=== PATIENT | male | born 1975 | race Caucasian/White ===

== ENCOUNTER 2017-04-29 19:35 | Emergency (ER) | payer OTHER ==
[2017-04-29] MEDS ORDERED: DIPH,PERTUS(ACELL)TETVAC-LF 0.5 ML VIAL IM ONE (20:52)
--- NOTE | 2017-04-29 21:02 | XR ---
EXAMINATION TYPE: XR finger LT DATE OF EXAM: 04/29/2017 COMPARISON: NONE HISTORY: Fourth digit laceration after crush injury. TECHNIQUE: 3 views of the fourth digit were obtained. FINDINGS: There is no evidence of acute fracture or malalignment of the fourth digit. Osseous mineral ization is within normal limits. Mild soft tissue swelling is seen of the mid and proximal phalanx. N o radiopaque foreign body. IMPRESSION: Mild soft tissue swelling of the fourth digit without evidence of acute fracture or malal ignment.
--- NOTE | 2017-04-29 21:13 | ED ---
General Adult HPI - General Chief complaint: Wound/Laceration Stated complaint: finger lac Time Seen by Provider: 04/29/17 20:43 Source: patient, family, RN notes reviewed Mode of arrival: wheelchair Limitations: no limitations - History of Present Illness Initial comments: 41 yo male presents to the ER with cc of left ring finger abrasion. Patient states that he got his finger caught in farm equipment tonight and shaved off the top layer of skin. Patient states that there is no other injury. Does not recall his last tetanus. He is low but of pain to that finger worse to movement. He denies any nail involvement. He states this happened on accident. Patient denies any recent fever, chills, shortness of breath, chest pain, back pain, abdominal pain, nausea vomiting, numbness or tingling, dysuria or hematuria, constipation or diarrhea, headaches or visual changes, or any other current symptoms. - Related Data Home Medications Medication Instructions Recorded Confirmed No Known Home Medications [No 04/29/17 04/29/17 Known Home Medications] Allergies Allergy/AdvReac Type Severity Reaction Status Date / Time No Known Allergies Allergy Verified 04/29/17 20:20 Review of Systems ROS Statement: Those systems with pertinent positive or pertinent negative responses have been documented in the HPI. ROS Other: All systems not noted in ROS Statement are negative. Past Medical History Past Medical History: No Reported History, Sleep Apnea/CPAP/BIPAP History of Any Multi-Drug Resistant Organisms: None Reported Past Surgical History: Adenoidectomy, Tonsillectomy Past Psychological History: No Psychological Hx Reported Smoking Status: Never smoker Past Alcohol Use History: Occasional Past Drug Use History: None Reported General Exam - General Exam Comments Initial Comments: General: The patient is awake and alert, in no distress, and does not appear acutely ill. Neck: The neck is supple, there is no tenderness . Cardiovascular: There is a regular rate and rhythm. No murmur, rub or gallop is appreciated. Respiratory: Lungs are clear to auscultation, respirations are non-labored, breath sounds are equal. No wheezes, stridor, rales, or rhonchi. Musculoskeletal: sensation intact with 2+ pulses throughout the left upper extremity. full range of motion throughout with 5/5 muscle strength testing. avulsion of skin along the palmar aspect of left ring finger. no deep tissue injury noted. Neurological: CN II-XII intact, There are no obvious motor or sensory deficits. Coordination appears grossly intact. Speech is normal. Skin: Skin is warm and dry and no rashes or lesions are noted. Psychiatric: Normal mood and affect. Limitations: no limitations Course Vital Signs 04/29/17 20:16 Temperature 98.6 F Pulse Rate 86 Respiratory 20 Rate Blood Pressure 125/70 O2 Sat by Pulse 98 Oximetry Medical Decision Making - Medical Decision Making 41-year-old male presents for a left ring finger skin avulsion. This time x- rays reviewed and negative. This tenderness. We discussed long term. Discussed follow-up we discussed return for hours all questions. Patient stated that he understood he is given this plan. All questions have been answered. He'll be discharged. - Radiology Data Radiology results: report reviewed, image reviewed Disposition Clinical Impression: Avulsion of skin of finger without complication Narrative: left ring Disposition: HOME SELF-CARE Condition: Stable Instructions: Acute Wound Care (ED) Additional Instructions: Please use medication as discussed. Please follow up with family doctor if symptoms have not improved over the next two days. Please return to the emergency room if your symptoms increase or worsen or for any other concerns. Referrals: Emily Forte MD [REFERRING] - 1-2 days Time of Disposition: 21:36
[2017-04-29 21:48] VITALS: BP 130/60; PULSE 75; RESP 16; TEMP 98.3
== END 2017-04-29 21:45 | disposition home or self-care (01) ==
LOC: EC 19:35
DX: S61.205A Unspecified open wound of left ring finger without damage to nail, initial encounter (principal); G47.30 Sleep apnea, unspecified; Z99.89 Dependence on other enabling machines and devices; Z23 Encounter for immunization; W29.8XXA Contact with other powered hand tools and household machinery, initial encounter
CPT/HCPCS: 90471; 90715; 99283

== ENCOUNTER → 2018-04-08 | Outpatient (CLI) | payer OTHER ==
--- NOTE | 2018-04-09 10:45 | ECHOF ---
Referral Reason:R55 syncope MEASUREMENTS -------- HEIGHT: 162.6 cm WEIGHT: 104.3 kg BP: RVIDd: 3.1 cm (< 3.3) IVSd: 1.0 cm (0.6 - 1.1) LVIDd: 3.9 cm (3.9 - 5.3) LVPWd: 1.1 cm (0.6 - 1.1) IVSs: 1.4 cm LVIDs: 2.6 cm LVPWs: 1.3 cm Ao Diam: 3.3 cm (2.0 - 3.7) AV Cusp: 1.9 cm (1.5 - 2.6) LA Diam: 3.3 cm (2.7 - 3.8) MV EXCURSION: 17.245 mm (> 18.000) MV EF SLOPE: 96 mm/s (70 - 150) EPSS: 0.1 cm MV E Alexx: 0.96 m/s MV DecT: 176 ms MV A Alexx: 0.55 m/s MV E/A Ratio: 1.75 RAP: 5.00 mmHg RVSP: 21.96 mmHg FINDINGS -------- Sinus rhythm. This was a technically good study. LV size, wall thickness and systolic function are normal, with an EF greater than 55%. The left gurmeet tricular size is normal. The right ventricle is normal in size. The left atrial size is normal. The right atrial size is normal. The aortic valve is trileaflet, and appears structurally normal. No aortic stenosis or regurgitation. Mild mitral annular calcification present. Mild mitral regurgitation is present. Mild tricuspid regurgitation present. There is no evidence of pulmonary hypertension. The right v entricular systolic pressure, as measured by Doppler, is 21.96mmHg. There is no pulmonic regurgitation present. The aortic root size is normal. There is no pericardial effusion. CONCLUSIONS -------- 1. LV size, wall thickness and systolic function are normal, with an EF greater than 55%. 2. The right ventricle is normal in size. 3. The left atrial size is normal. 4. The right atrial size is normal. 5. The aortic valve is trileaflet, and appears structurally normal. No aortic stenosis or regurgitati on. 6. Mild mitral annular calcification present. 7. Mild mitral regurgitation is present. 8. Mild tricuspid regurgitation present. 9. There is no evidence of pulmonary hypertension. 10. The right ventricular systolic pressure, as measured by Doppler, is 21.96mmHg. 11. There is no pulmonic regurgitation present. 12. The aortic root size is normal. 13. There is no pericardial effusion. [employer]: Ludmila Alanis RDCS
== END | disposition home or self-care (01) ==
LOC: RADECHMAIN 15:29
PROVIDERS: ATTEND Family Medicine
DX: I08.1 Rheumatic disorders of both mitral and tricuspid valves (principal)
CPT/HCPCS: 93306

== ENCOUNTER → 2018-04-17 | Outpatient (CLI) | payer OTHER ==
--- NOTE | 2018-05-20 06:20 | EM ---
EVENT MONITOR A 30-DAY EVENT MONITOR. DATE OF THE STUDY: April 17, 2018. FINDINGS: The patient was monitored for 30 days. The baseline rhythm appeared to be a sinus mechanism. The patient did have multiple episodes of sinus tachycardia with a max heart rate of 150 beats per minute. Beside that, the patient did not have any evidence of sinus bradycardia. No evidence of any sinus pause or sinus arrest. No evidence of any advanced AV block seen. He did have an episode of ventricular triplet, but the heart rate was 79 beats per minute. CONCLUSION: 1. This is a 4-week event monitor. 2. Sinus rhythm as a baseline mechanism. 3. Multiple episodes of sinus tachycardia with max heart rate of 150 beats per minute. 4. No evidence of any sinus pause or sinus arrest. 5. No evidence of any advanced AV block. 6. No evidence of any significant arrhythmia noted. MMODL / IJN: [id number] /
== END | disposition home or self-care (01) ==
LOC: RADECHMAIN 12:05
PROVIDERS: ATTEND Family Medicine
DX: R55 Syncope and collapse (principal)
CPT/HCPCS: 93270; 93271

== ENCOUNTER 2019-04-08 13:28 | Observation (INO) | payer OTHER ==
[2019-04-08] MEDS ORDERED: DIAZEPAM 5 MG/ML 2 ML INJ IVP STA (14:05)
--- NOTE | 2019-04-08 14:18 | ED ---
Back Pain HPI - General Chief Complaint: Back Pain/Injury Stated Complaint: BACK PAIN Time Seen by Provider: 04/08/19 14:01 Source: patient - History of Present Illness Initial Comments: Patient is a 43-year-old male presenting to the emergency department via EMS with complaints of severe low back pain and spasm that happened just prior to arrival. Patient states he was walking [place] his [place] when the pain and spasms made him drop to his knees. Patient states he was not doing anything at the time. Patient's states this morning she noticed that he had a little bit more difficulty getting dressed this morning. Patient does have a history of chronic low back pain but has never been this severe. Patient received 100 mcg of fentanyl and 4 MG is of Zofran in the EMS prior to arrival. Patient states this only helped minimally with his pain. Patient denies any other trauma or falls recently. He denies any lumbar surgeries. He does not remember the last time he had imaging. Patient denies pain in his neck, abdominal, fever, chills, nausea numbness and tingling into his lower extremities. He denies bowel and bladder incontinence. He has no other complaints at this time. Upon arrival to the ER, his vital signs are stable. - Related Data Home Medications Medication Instructions Recorded Confirmed Omeprazole Magnesium [PriLOSEC OTC] 20 mg PO DAILY PRN 04/08/19 04/08/19 Allergies Allergy/AdvReac Type Severity Reaction Status Date / Time No Known Allergies Allergy Verified 04/08/19 18:29 Review of Systems ROS Statement: Those systems with pertinent positive or pertinent negative responses have been documented in the HPI. ROS Other: All systems not noted in ROS Statement are negative. Past Medical History Past Medical History: No Reported History, Sleep Apnea/CPAP/BIPAP Additional Past Medical History / Comment(s): chronic back pain History of Any Multi-Drug Resistant Organisms: None Reported Past Surgical History: Adenoidectomy, Tonsillectomy Past Psychological History: No Psychological Hx Reported Smoking Status: Never smoker Past Alcohol Use History: Occasional Past Drug Use History: None Reported General Exam - General Exam Comments Initial Comments: GENERAL: Patient is teary-eyed at, in mild distress secondary to acute low back pain. HEAD: Atraumatic, normocephalic. EYES: Pupils equal round and reactive to light, extraocular movements intact, sclera anicteric, conjunctiva are normal. ENT: TMs normal, nares patent, oropharynx clear without exudates. Moist mucous membranes. NECK: Normal range of motion, supple without lymphadenopathy or JVD. LUNGS: Breath sounds clear to auscultation bilaterally and equal. No wheezes rales or rhonchi. HEART: Regular rate and rhythm without murmurs, rubs or gallops. ABDOMEN: Soft, nontender, normoactive bowel sounds. No guarding, no rebound. No masses appreciated. : Deferred Rectal: Rectal tone normal EXTREMITIES: Patient has normal range of motion of the lower extremities although this increases his back pain. Patient's strength is 5 out of 5. Patient's sensation is equal and bilateral. He is neurovascular intact. There is no lower leg edema. NEUROLOGICAL: Cranial nerves II through XII grossly intact. Normal speech. PSYCH: Normal mood, normal affect. SKIN: Warm, Dry, normal turgor, no rashes or lesions noted. Course Vital Signs 04/08/19 13:30 Temperature 97.9 F Pulse Rate 68 Respiratory 20 Rate Blood Pressure 119/71 O2 Sat by Pulse 99 Oximetry Medical Decision Making - Medical Decision Making Patient is a 43-year-old male presenting via EMS for acute onset of low back pain. Patient does have chronic history of back pain but has never been this severe. Patient has been unable to walk in the ER. Patient received fentanyl EMS as well as Valium and Dilaudid the ER. His vital signs are stable. His exam has no red flag symptoms. His rectal tone is normal. Lumbar x-ray revealed a large calcification extending from the L5 superior endplate in the recommended CT for further evaluation. No other abnormalities were seen. CT of the lumbar spine showed a small posterior disc herniation at L4- 5 and L5-S1. There is no significant spinal stenosis. No fracture. Patient is not willing to stand secondary to pain. He was able to roll on his side for rectal exam. I discussed these findings with the patient. Patient will be admitted to observation for intractable low back pain. We will consult neurology. Patient was accepted by Dr. Fuller. Case was discussed with Dr. Merida. Disposition Clinical Impression: Intractable low back pain Disposition: ADMITTED IP TO THIS [facility] Condition: Stable Is patient prescribed a controlled substance at d/c from ED?: No Decision Date: 04/08/19 Decision Time: 18:08
--- NOTE | 2019-04-08 15:54 | XR ---
EXAMINATION TYPE: XR lumbar spine 2 or 3V DATE OF EXAM: 04/08/2019 COMPARISON: None HISTORY: Sudden pain low back TECHNIQUE: Three-view lumbar spine FINDINGS: There 5 lumbar-type vertebral bodies. The pedicles are intact. Disc heights are preserved. Vertebral body heights are preserved. There appears to be attempted lumbarization of S1. There is a large calcification from the anterior L5 vertebral level. Additional workup with CT is rec ommended. IMPRESSION: 1. Large calcification extending from the L5 anterior superior endplate. CT is recommended for addit ional evaluation. 2. An acute osseous abnormality within the lumbar spine is not identified.
[2019-04-08] MEDS ORDERED: HYDROmorphone 1 MG/ML 1 ML SYRINGE IVP STA (16:10)
--- NOTE | 2019-04-08 17:00 | CT ---
EXAMINATION TYPE: CT lumbar spine wo con DATE OF EXAM: 04/08/2019 COMPARISON: None HISTORY: Low back pain and weakness without injury CT DLP: 1527.6 mGycm Automated exposure control for dose reduction was used. Lumbar vertebra have normal alignment. Disc spaces are fairly normal except for some narrowing at L5- S1. There is S1-S2 rudimentary disc. Sacroiliac joints appear intact. There is no lumbar paraspinal m ass. There is no compression fracture. There is mild posterior disc herniation at L4-5 and L5-S1. The re is no significant spinal stenosis. IMPRESSION: Small posterior disc herniations as above. Degenerative disc space narrowing at L5-S1. No fracture. N o significant spinal stenosis. Nonobstructing bilateral renal calculi.
[2019-04-08] MEDS ORDERED: NALOXONE 0.4 MG/ML 1 ML VIAL IV PRN (18:02)
[2019-04-08] MEDS ORDERED: ACETAMINOPHEN TAB 325 MG TAB PO PRN (18:02)
[2019-04-08] MEDS ORDERED: MORPHINE SULFATE 4 MG/ML SYRINGE IV PRN (18:02)
[2019-04-08] MEDS ORDERED: KETOROLAC 30 MG/ML 1 ML VIAL IVP PRN (18:02)
[2019-04-08] MEDS ORDERED: DIAZEPAM 5 MG/ML 2 ML INJ IVP PRN (18:06)
[2019-04-09 01:59] VITALS: TEMP 97.9
[2019-04-09 08:02] VITALS: BP 108/71; PULSE 62; RESP 16
[2019-04-09] MEDS ORDERED: CYCLOBENZAPRINE 5 MG TAB PO PRN (10:30)
[2019-04-09] MEDS ORDERED: methylPREDNISolone SOD SUCCI 125 MG/2 ML VIAL IV STA (10:43)
--- NOTE | 2019-04-09 10:57 | P.CNOR ---
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 He did not have any specific injury was not lifting and does not have an earlier injury. He says that he was just walking and had sudden increased pain in his lower back that brought him to his knees and to the ground. He was unable to get up and move around. This happened about yesterday around 1:00 and presented to the emergency room and was admitted. He was unable to get up in the emergency room he is unable to stand and move around. He says that he is not really having problems in his lower extremity. Denies any weakness in his lower extremity. Denies any changes in bowel bladder function. He says his back hurt somewhat when he laughs and coughs. He is not having any chest pain or shortness of breath. He is not having any visual changes. Is not having any problems in his neck or upper extremities. 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 He says he does not usually take any medications for his back. He had a history of some issues at his left upper extremity several years ago with some tingling which resolved. He is not having any active treatment and his back otherwise. Review of Systems As stated per HPI. Denies any changes about her function. Denies any chest pain shortness breath. Denies any fevers chills. Denies any prior problems at his pelvis. Past Medical History Past Medical History: Sleep Apnea/CPAP/BIPAP Additional Past Medical History / Comment(s): chronic back pain History of Any Multi-Drug Resistant Organisms: None Reported Past Surgical History: Adenoidectomy, Tonsillectomy Past Anesthesia/Blood Transfusion Reactions: No Reported Reaction Past Psychological History: No Psychological Hx Reported Smoking Status: Never smoker Past Alcohol Use History: Occasional Past Drug Use History: None Reported Medications and Allergies Home Medications Medication Instructions Recorded Confirmed Type Omeprazole Magnesium [PriLOSEC OTC] 20 mg PO DAILY PRN 04/08/19 04/08/19 History Cyclobenzaprine [Flexeril] 10 mg PO TID #21 tab 04/09/19 Rx Famotidine [Pepcid] 20 mg PO DAILY #12 tablet 04/09/19 Rx predniSONE 20 mg PO DIRECTED #24 tab 04/09/19 Rx Allergies Allergy/AdvReac Type Severity Reaction Status Date / Time No Known Allergies Allergy Verified 04/08/19 18:29 Physical Examination Osteopathic Statement: *. No significant issues noted on an osteopathic structural exam other than those noted in the History and Physical/Consult. - L Spine: dermatomal strength & reflexes bilateral Strength: hip flexion: 5/5 (At his back there is no open wounds lacerations or abrasions. There are no rashes. He was able to sit up though slowly in bed he is able to stand up at the side of the bed. He is able stand on his toes and on his heels with 5 out of 5 strength at dorsiflexion plantarflexion and EHL. He is able lift his legs up off the bed individually with 5 out of 5 strength. There is no pain with internal extra rotation is hips. There is no pain over his iliac crest. There is no pain over her sacrum. He is nontender over the midline of his lumbar spine. He has some paravertebral spasm. Sensory is intact. There is no saddle paresthesias. His upper extremities have full active and passive range motion. There is no neural tension signs. No pain in his neck or head.) Results - Diagnostic results Lumbar AP/lateral x-ray: report reviewed, image reviewed CT Scan - lumbar: report reviewed, image reviewed (I reviewed the plain x-rays and the computed tomography scan of his lumbar spine. There is calcification over the left iliac crest anteriorly near the ASIS. It is seen on the lateral view of the x-ray but is not seen otherwise. There is some disc degeneration through his lumbar spine. He has residual S1 to disc space. There is no evidence of any instability. No evidence of any fracture. There is some small bony changes at the inferior aspect of L5 anteriorly but there is no significant erosion or bony reaction around it. There is some facet arthrosis from L2 to L5. There is some diffuse disc bulging L2-3 L3 4 L4 5 with some bilateral foraminal encroachment particularly at L3 4 and L4 5.) Assessment and Plan Assessment: Acute lower back pain with inability to ambulate, atraumatic and slightly improving Degenerative disc disease L2-3 L3 4 L4 5 with facet arthrosis No specific radiculopathy or lower extremity weakness No neurologic deficit Myofascial strain with spasms lumbar spine Possible annular fissures lumbar spine Plan: Acute lower back pain with inability to ambulate, atraumatic and slightly improving Degenerative disc disease L2-3 L3 4 L4 5 with facet arthrosis No specific radiculopathy or lower extremity weakness No neurologic deficit Myofascial strain with spasms lumbar spine Possible annular fissures lumbar spine The patient had an acute lumbar issue in his lower back which may be a result of an annular fissure or acute myofascial strain. It was quite incapacitating for him yesterday but it has significant likelihood of resolving with conservative measures. His computed tomography scan does not show any acute fracture or dislocation or process. I think is okay for him to mobilize slowly and to continue management on an outpatient basis after he receives some further medication today here in Hospital. I like to see if he has some improvement with a course of steroid. We'll give him an IV dose prior to his discharge. He has been taking some muscle relaxers thus far. He can continue an oral tapering dose of steroid which we have written for over the next 12 days. He should take some GI prophylaxis and may take muscle relaxer as needed for this as well. It is okay for him to mobilize and ambulate to his tolerance. He should avoid any heavy or rigorous activity. He should avoid any repetitive bending twisting or lifting. I would like to see him back in our office in approximately 1 week time for recheck evaluation. He may need further imaging and even possibly of an MRI. He is not having specific radiculopathy but there is a small bony change at the inferior aspect of L5 which we may need a basket further if his symptoms are not responding. He is requesting an MRI here in Hospital. I think that we can hold off on the MRI acutely and continue close follow-up and workup on an outpatient basis as his symptoms are quite new and he is not having specific neurologic deficit. Certai nly if he is not having improvement with conservative care further imaging would be indicated. I explained this to him and his family at length in the room and he seemed to understand. Time with Patient: Greater than 30
--- NOTE | 2019-04-09 13:08 | P.HPIM ---
History of Present Illness 43-year-old the male came back came in with complaints of lower back pain while walking patient doesn't have any tingling numbness or weakness in both legs. Patient denied any specific injuries CT scan of the back was donewhich showed diffuse bulging at L2-L3 L4-L5 with foraminal encroachment without any significant foraminal stenosis. Patient was just walking when he started having pain. Patient was a valid by orthopedic surgeon who recommended aanti- inflammatory medications and medications for back spasm patient pain is better now and the patient is cleared for discharge and will be discharged on above mentioned medications and t patient does have chronic low back pain patient denied any bladder problems or bowel problems Review of Systems REVIEW OF SYSTEMS: CONSTITUTIONAL: No fever, no malaise, no fatigue. HEENT: No recent visual problems or hearing problems. Denied any sore throat. CARDIOVASCULAR: No chest pain, orthopnea, PND, no palpitations, no syncope. PULMONARY: No shortness of breath, no cough, no hemoptysis. GASTROINTESTINAL: No diarrhea, no nausea, no vomiting, no abdominal pain. NEUROLOGICAL: No headaches, no weakness, no numbness. HEMATOLOGICAL: Denies any bleeding or petechiae. GENITOURINARY: Denies any burning micturition, frequency, or urgency. MUSCULOSKELETAL/RHEUMATOLOGICAL: as mentioned in HPI ENDOCRINE: Denies any polyuria or polydipsia. The rest of the 14-point review of systems is negative. Past Medical History Past Medical History: Sleep Apnea/CPAP/BIPAP Additional Past Medical History / Comment(s): chronic back pain History of Any Multi-Drug Resistant Organisms: None Reported Past Surgical History: Adenoidectomy, Tonsillectomy Past Anesthesia/Blood Transfusion Reactions: No Reported Reaction Past Psychological History: No Psychological Hx Reported Smoking Status: Never smoker Past Alcohol Use History: Occasional Past Drug Use History: None Reported Medications and Allergies Home Medications Medication Instructions Recorded Confirmed Type Omeprazole Magnesium [PriLOSEC OTC] 20 mg PO DAILY PRN 04/08/19 04/08/19 History Cyclobenzaprine [Flexeril] 10 mg PO TID #21 tab 04/09/19 Rx Famotidine [Pepcid] 20 mg PO DAILY #12 tablet 04/09/19 Rx predniSONE 20 mg PO DIRECTED #24 tab 04/09/19 Rx Allergies Allergy/AdvReac Type Severity Reaction Status Date / Time No Known Allergies Allergy Verified 04/08/19 18:29 Physical Exam Vitals: Vital Signs Temp Pulse Pulse Resp BP BP Pulse Ox 04/09/19 07:30 16 04/09/19 07:00 97.9 F 62 16 108/71 98 04/09/19 01:58 97.9 F 69 17 104/71 100 04/08/19 19:12 98.2 F 62 19 136/86 97 04/08/19 13:30 97.9 F 68 20 119/71 99 Intake and Output 04/08/19 04/09/19 04/09/19 22:59 06:59 14:59 Intake Total 296 Output Total 300 200 Balance -300 -200 296 Intake: Oral 296 Output: Urine 300 200 Other: Voiding Method Urinal Urinal # Voids 1 1 Weight 111.13 kg PHYSICAL EXAMINATION: GENERAL: The patient is alert and oriented x3, not in any acute distress. Well developed, well nourished. HEENT: Pupils are round and equally reacting to light. EOMI. No scleral icterus. No conjunctival pallor. Normocephalic, atraumatic. No pharyngeal erythema. No thyromegaly. CARDIOVASCULAR: S1 and S2 present. No murmurs, rubs, or gallops. PULMONARY: Chest is clear to auscultation, no wheezing or crackles. ABDOMEN: Soft, nontender, nondistended, normoactive bowel sounds. No palpable organomegaly. MUSCULOSKELETAL: patient doesn't have any weakness does have some tenderness in the past but an area and lower lumbar spine area. For rest of exam refer to orthopedic surgery EXTREMITIES: No cyanosis, clubbing, or pedal edema. NEUROLOGICAL: Gross neurological examination did not reveal any focal deficits. SKIN: No rashes. Thrombosis Risk Factor Assmnt - Choose All That Apply Each Factor Represents 1 point: Age 41-60 years, Obesity (BMI >25) Thrombosis Risk Factor Assessment Total Risk Factor Score: 2 Thrombosis Risk Factor Assessment Level: Low Risk Assessment and Plan Plan: -acute low back pain and lumbar radiculopathy: anti-inflammatory medications and patient will be discharged. Patient is able to ambulate no weakness was appreciated. No neurological deficits -Myofascial strain -Gastroesophageal reflux disease
[2019-04-10] MEDS ORDERED: FAMOTIDINE 20 MG TAB PO SCH (09:00)
== END 2019-04-09 13:02 | disposition home or self-care (01) ==
LOC: EC 13:28 → 4SSUR 17:58
PROVIDERS: ADMIT Internal Medicine; ATTEND Internal Medicine
DX: M51.16 Intervertebral disc disorders with radiculopathy, lumbar region (principal); M51.17 Intervertebral disc disorders with radiculopathy, lumbosacral region; S39.012A Strain of muscle, fascia and tendon of lower back, initial encounter; G47.30 Sleep apnea, unspecified; Z99.89 Dependence on other enabling machines and devices; Z90.89 Acquired absence of other organs; Z79.899 Other long term (current) drug therapy; X58.XXXA Exposure to other specified factors, initial encounter
CPT/HCPCS: 96374; 96375; 99285; 72100; 72131; G0378 ×2; J2930; J3360; J1885; J1170

== ENCOUNTER → 2019-05-27 | Outpatient (CLI) | payer OTHER ==
--- NOTE | 2019-05-28 07:13 | US ---
EXAMINATION TYPE: US kidneys/renal and bladder DATE OF EXAM: 05/27/2019 COMPARISON: CT lumbar spine dated 04/08/2019 CLINICAL HISTORY: R93.89 Abnormal findings on diagnostic imaging of other specified body structures. EXAM MEASUREMENTS: Right Kidney: 11.0 x 5.0 x 4.3 cm Left Kidney: 11.3 x 5.6 x 5.5 cm Patient states that he is unsure whether his abnormal imaging was his CT that was done here or his MR [facility]. Right Kidney: cyst measuring 2.3 x 2.4 x 2.0cm Left Kidney: prominent area superior pole of left kidney, is is unclear whether this is a lobular por tion of kidney or a mass such as on image 33/50 Bladder: wnl There is no evidence for hydronephrosis at this point in time. No nephrolithiasis is seen on ultraso und. The urinary bladder is anechoic. Bilateral ureteral jets are seen. IMPRESSION: 1. Lobular contour versus solid mass of the upper pole of the left kidney. CT with contrast is recomm ended for further evaluation. 2. The punctate bilateral renal calculi seen on the recent CT the lumbar spine are not visualized son ographically. No hydronephrosis of either kidney.
== END | disposition home or self-care (01) ==
LOC: RADUSWWP 15:33
PROVIDERS: ATTEND Family Medicine
DX: R93.89 Abnormal findings on diagnostic imaging of other specified body structures (principal)
CPT/HCPCS: 76770